=== PATIENT | female | born 1985 | race American Indian/Alaskan Native ===

== ENCOUNTER 2021-06-02 16:31 | Emergency (ER) | payer BC ==
[2021-06-02] MEDS ORDERED: dexAMETHasone 20 MG/5 ML VIAL IM ONE (18:05)
[2021-06-02] MEDS ORDERED: HYDROcodone/ACETAMINOPHEN 7.5-325MG TAB PO ONE (18:05)
--- NOTE | 2021-06-02 18:15 | Emergency Department Report ---
ED Back Pain/Injury HPI - General Chief Complaint: Back Pain/Injury Stated Complaint: BACK PAIN Time Seen by Provider: 06/02/21 17:50 Source: patient Limitations: No Limitations - History of Present Illness Initial Comments: Patient is a 35-year-old F [place] female who is been exercising excessively over the last year who feels like she may have strained her lower back. Patient states yesterday she started feeling some pain in the left lower back which has worsened to the point where today she feels as though she is stuck bending over her approximately 45 degrees. Patient cannot bend any more than that she also cannot stand up straight. Patient states the pain is in the left lower back and does radiate down the left leg. Having difficulty sitting directly on the left buttock. Denies any fevers chills bowel or bladder dysfunction dysuria. There was no direct falls or trauma. Pain estimated 8 out of 10 in severity. - Related Data Previous Rx's Medication Instructions Recorded Last Taken Type Ketorolac [Toradol] 10 mg PO Q6H PRN #20 tablet 06/02/21 Unknown Rx methOCARBAMOL [Robaxin TAB] 500 mg PO Q6H PRN #14 tablet 06/02/21 Unknown Rx traMADoL [Ultram] 50 mg PO Q6HR PRN #20 tablet 06/02/21 Unknown Rx Allergies Allergy/AdvReac Type Severity Reaction Status Date / Time No Known Allergies Allergy Unverified 06/02/21 16:37 ED Review of Systems ROS: Stated complaint: BACK PAIN Other details as noted in HPI Comment: All other systems reviewed and negative ED Past Medical Hx - Medications Home Medications: Home Medications Medication Instructions Recorded Confirmed Last Taken Type Ketorolac [Toradol] 10 mg PO Q6H PRN #20 tablet 06/02/21 Unknown Rx methOCARBAMOL [Robaxin TAB] 500 mg PO Q6H PRN #14 tablet 06/02/21 Unknown Rx traMADoL [Ultram] 50 mg PO Q6HR PRN #20 tablet 06/02/21 Unknown Rx ED Physical Exam - General Limitations: No Limitations General appearance: alert, in no apparent distress - Head Head exam: Present: atraumatic, normocephalic - Eye Eye exam: Present: normal appearance, PERRL, EOMI - ENT ENT exam: Present: normal orophraynx, mucous membranes moist - Neck Neck exam: Present: normal inspection - Respiratory Respiratory exam: Present: normal lung sounds bilaterally. Absent: respiratory distress, wheezes, rales, rhonchi - GI/Abdominal GI/Abdominal exam: Present: normal bowel sounds - Extremities Exam Extremities exam: Present: normal inspection - Back Exam Back exam: Present: normal inspection, other (tender L lower back p paraspinal) - Neurological Exam Neurological exam: Present: alert, oriented X3 - Psychiatric Psychiatric exam: Present: normal affect, normal mood - Skin Skin exam: Present: warm, dry, intact, normal color. Absent: rash ED Course Vital Signs 06/02/21 16:37 Temperature 98.8 F Pulse Rate 128 H Respiratory 18 Rate O2 Sat by Pulse 98 Oximetry ED Medical Decision Making - Medical Decision Making Patient likely with musculoskeletal pain as well as some lumbar radiculopathy. Patient given medication for symptomatic relief and be discharged home follow with [facility] brain and spine Critical care attestation.: If time is entered above; I have spent that time in minutes in the direct care of this critically ill patient, excluding procedure time. ED Disposition Clinical Impression: Lumbar radiculopathy, acute Disposition: 01 HOME / SELF CARE / HOMELESS Is pt being admited?: No Does the pt Need Aspirin: No Condition: Stable Instructions: Sciatica, [id number] Referrals: DEWEY JURADO II, MD [Staff Physician] - 3-5 Days Time of Disposition: 18:15
[2021-06-02 19:28] VITALS: BP 133/79
== END 2021-06-02 19:28 | disposition home or self-care (01) ==
LOC: ED 16:31
DX: M54.16 Radiculopathy, lumbar region (principal)
CPT/HCPCS: 96372; 99282; J1100